=== PATIENT | female | born 2000 | race Caucasian/White ===

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

== ENCOUNTER 2018-10-08 19:39 | Emergency (ER) | payer BC ==
[2018-10-08 19:53] VITALS: BP 103/63
--- NOTE | 2018-10-08 19:55 | EDPHY ---
H & P Stated Complaint: RIGHT EYE PAIN, DISCHARGE,REDNESS, 2 DAYS Time Seen by Provider: 10/08/18 19:53 HPI/ROS: HPI: This is a 18-year-old female who presents with Chief Complaint: RIGHT EYE PAIN, DISCHARGE,REDNESS, 2 DAYS Location: Right eye Quality: Discharge, redness Duration: 2 days Signs and Symptoms: no fever, no nausea, no vomiting, no photophobia, no noise sensitivity, no neck stiffness, no ear pain, no tinnitus, no nasal congestion, no sinus pressure, no weakness, no radiation, no aura Timing: Worsening Severity: Mild Context: Patient is a student at [employer], contact lens wear, presents with 2 day history of right eye itchiness and discomfort accompanied by discharge and redness. Patient reports that she fell asleep with her contact lens overnight and then woke up the next day with watery right eye and redness. Patient reports that she washed laundry approximately 1-2 weeks ago. She has been wearing her glasses for the last 2 days. Denies any change in vision. Reports tetanus is current. Denies any trauma/foreign body sensation. Modifying Factors: None Comment: ROS: A comprehensive 10 system review of systems is otherwise negative aside from elements mentioned in the history of present illness. MEDICAL/SURGICAL/SOCIAL HISTORY: Medical history: Generally healthy. IUD in place. Surgical history: Denies Social history: Former smoker. Denies drug use. Family history noncontributory. General appearance: Well-developed, well-nourished, young adult white female, awake and alert, cooperative. Visual Acuity: noted from Nurse's notes. Pupils: equal round and reactive to light. EOMI. Lids: no edema or swelling Skin: no proptosis, no periorbital erythema or swelling, no vesicles Conjunctivae: not injected, no discharge Cornea: exam with fluorescein shows uptake at 6:00 a[address] Anterior chamber: normal, no hyphema or hypopyon Source: Patient Exam Limitations: No limitations - Personal History LMP (Females 10-55): IUD [address] Place Current Tetanus/Diphtheria Vaccine: Yes - Medical/Surgical History Hx Asthma: Yes Hx Chronic Respiratory Disease: No Hx Diabetes: No Hx Cardiac Disease: No Hx Renal Disease: No Hx Cirrhosis: No Hx Alcoholism: No Hx HIV/AIDS: No Hx Splenectomy or Spleen Trauma: No Other PMH: boarder line personality, migraines,asthma - Social History Smoking Status: Former smoker Constitutional: Initial Vital Signs Temperature (C) 36.9 C 10/08/18 19:49 Heart Rate 88 10/08/18 19:49 Respiratory Rate 18 10/08/18 19:49 Blood Pressure 103/63 10/08/18 19:49 O2 Sat (%) 98 10/08/18 19:49 O2 Delivery Mode Room Air Allergies/Adverse Reactions: No Known Allergies Allergy (Unverified 10/08/18 19:48) Home Medications: Medication Instructions Recorded Wellbutrin Xl 08/06/16 Zonisamide 08/06/16 Ibuprofen [Motrin (*)] 800 mg PO Q6-8PRN #10 tab 10/13/17 Naratriptan HCl 10/13/17 Abilify 10/08/18 PRISTIQ 10/08/18 Medical Decision Making ED Course/Re-evaluation: Tetanus is up-to-date. Fluorescein uptake consistent with corneal abrasion Contact lens wear; ofloxacin eye drops given This patient was seen under the supervision of my secondary supervising physician. I evaluated care for this patient independently. Discussed this patient with Dr. Baumann. Differential Diagnosis: Differential diagnosis includes but is not limited to uveitis, iritis, conjunctivitis, corneal abrasion, dry eyes. - Data Points Medications Given: Discontinued Medications Proparacaine HCl (Alcaine 0.5%) 1 drops OP EDNOW ONE Stop: 10/08/18 19:59 Last Admin: 10/08/18 20:04 Dose: Not Given Departure - Departure Disposition: Home, Routine, Self-Care Clinical Impression: Corneal abrasion of right eye due to contact lens Condition: Good Instructions: Corneal Abrasion (ED) Additional Instructions: Instill Ofloxacin 2 drops in affected eye(s) every 4 hours for the first 2 days , then instill 2 drops 4 times daily for an additional 5 days. Please avoid using your hands to touch your eyes. Wash your hands frequently with mild soap and water. Apply cool compresses for 15-20 minutes at a time several times per day for the next 1-2 days. Follow up with ophthalmology in 5-7 days if no improvement in symptoms. Take Tylenol 650 mg every 4 hr and/or ibuprofen 600 mg every 8 hr as needed for pain. Eye Complaint: Return to the Emergency Department for any increase in eye pain, redness, swelling, discharge or any worsening of your vision. Referrals: Richa Haq MD [Medical Doctor] - As per Instructions
[2018-10-08] MEDS ORDERED: PROPARACAINE 0.5% 15 ML OPHT DROP OP ONE (19:58)
[2018-10-08] MEDS ORDERED: FLUORESCEIN SODIUM 1 MG STRIP OP ONE (20:00)
[2018-10-08] MEDS ORDERED: OFLOXACIN 0.3% SOLN PREPACK OPHT.BTL TAKEHOME ONE (20:07)
== END 2018-10-08 20:19 | disposition home or self-care (01) ==
DX: S05.01XA Injury of conjunctiva and corneal abrasion without foreign body, right eye, initial encounter (principal); X58.XXXA Exposure to other specified factors, initial encounter; Y99.9 Unspecified external cause status; Z87.891 Personal history of nicotine dependence

== ENCOUNTER 2018-11-14 11:04 | Emergency (ER) | payer BC ==
--- NOTE | 2018-11-14 11:26 | EDPHY ---
H & P Stated Complaint: N/V and abdo pian since this AM. Time Seen by Provider: 11/14/18 11:24 HPI/ROS: HPI: This is a 18-year-old female who presents with Chief Complaint: N/V and abdominal pain since this AM. Location: GI Quality: Nausea, vomiting Duration: Started around 7:00 a.m. Approximately 4 hr prior to arrival Signs and Symptoms: no fever, + nausea, + vomiting, no hematemesis, no blood in stool, no abdominal bloating, no diarrhea, no back pain, no urinary symptoms, no vaginal bleeding/discharge, no indigestion, no chest pain, no shortness of breath Timing: Acute, intermittent episodes Severity: [id number] Context: Patient is a student at [employer], lives in apartment alone, presents with waking up this morning around 7:00 a.m. Feeling nauseous and vomiting her stomach contents approximately 5 times. She denies any fever, diarrhea, urinary symptoms, flank pain, back pain. She does complain of generalized abdominal cramping prior to vomiting. No recent antibiotic use. Patient believes that the nausea she had yesterday evening was not good and may have given her"food poisoning."Patient has an IUD and usually gets her menses every month around the . Modifying Factors: None Comment: ROS: A comprehensive 10 system review of systems is otherwise negative aside from elements mentioned in the history of present illness. MEDICAL/SURGICAL/SOCIAL HISTORY: Medical history: boarder line personality, migraines, asthma. IUD in place. LMP 2 weeks ago. Surgical history: Denies Social history: Nonsmoker. Denies drug use. Family history noncontributory. CONSTITUTIONAL: Polite and cooperative, well-appearing, young adult white female awake and alert, no obvious distress HEENT: Atraumatic and normocephalic, PERRL, EOMI. Nares patent; no rhinorrhea; no nasal mucosal edema. Tympanic membranes clear. Oropharynx clear, no exudate and moist pink mucosa. Airway patent. No lymphadenopathy. No meningismus. Cardiovascular: Normal S1/S2, tachycardia, regular rhythm, without murmur rub or gallop. PULMONARY/CHEST: Symmetrical and nontender. Clear to auscultation bilaterally. Good air movement. No accessory muscle usage. ABDOMEN: Soft, nondistended, nontender, no rebound, no guarding, no peritoneal signs, no masses or organomegaly. No CVAT. EXTREMITIES: 2/2 pulses, strength 5/5, no deformities, no clubbing, no cyanosis or edema. NEUROLOGICAL: no focal neuro deficits. GCS 15. SKIN: Warm and dry, no erythema. no rash. Good capillary refill. Source: Patient Exam Limitations: No limitations - Personal History LMP (Females 10-55): IUD In Place Current Tetanus Diphtheria and Acellular Pertussis (TDAP): Yes - Medical/Surgical History Hx Asthma: Yes Hx Chronic Respiratory Disease: No Hx Diabetes: No Hx Cardiac Disease: No Hx Renal Disease: No Hx Cirrhosis: No Hx Alcoholism: No Hx HIV/AIDS: No Hx Splenectomy or Spleen Trauma: No Other PMH: boarder line personality, migraines,asthma - Social History Smoking Status: Former smoker Constitutional: Initial Vital Signs Temperature (C) 36.9 C 11/14/18 11:10 Heart Rate 101 H 11/14/18 11:10 Respiratory Rate 16 11/14/18 11:10 Blood Pressure 121/75 H 11/14/18 11:10 O2 Sat (%) 97 11/14/18 11:10 O2 Delivery Mode Room Air Allergies/Adverse Reactions: No Known Allergies Allergy (Unverified 10/08/18 19:48) Home Medications: Medication Instructions Recorded Wellbutrin Xl 08/06/16 Zonisamide 08/06/16 Ibuprofen [Motrin (*)] 800 mg PO Q6-8PRN #10 tab 10/13/17 Naratriptan HCl 10/13/17 Abilify 10/08/18 PRISTIQ 10/08/18 Ondansetron Odt [Zofran Odt 4 mg 4 mg PO Q4 PRN #12 tab 11/14/18 (*)] Promethazine HCl 25 mg PO Q6 PRN #10 tablet 11/14/18 Medical Decision Making ED Course/Re-evaluation: Vital signs reviewed and show tachycardia but no fever. Abdomen is soft and nontender doubt surgical process or need for imaging. IV access and laboratory studies ordered Given 1 L normal saline, IV promethazine 12.5 mg and p.o. Tylenol 1000 mg 1230: Laboratory studies reviewed. No signs of BRADLY/elevated LFTs/electrolyte imbalance/pancreatitis/. 1256: Reassessed patient who reports near complete relief of symptoms. She is drinking water without difficulty. No episodes of vomiting in the 3 hr that she was in the emergency room. Patient requesting school excuse as she has a final tomorrow. This patient was seen under the supervision of my secondary supervising physician. I evaluated care for this patient independently. Discussed this patient with Dr. Gabriel who did not see the patient. Differential Diagnosis: Abdominal pain including but not limited to appendicitis, cholecystitis, gastritis and urinary tract infection. - Data Points Laboratory Results: Laboratory Results 11/14/18 11:35 11/14/18 11/14/18 11:35 11:35 Sodium 140 mEq/L mEq/L (135-145) Potassium 4.5 mEq/L mEq/L (3.5-5.2) Chloride 107 mEq/L mEq/L (97-110) Carbon Dioxide 20 mEq/l L mEq/l (22-31) Anion Gap 13 mEq/L mEq/L (6-14) BUN 17 mg/dL mg/dL (7-23) Creatinine 0.6 mg/dL mg/dL (0.6-1.0) Estimated GFR > 60 Glucose 86 mg/dL mg/dL (70-100) Calcium 9.1 mg/dL mg/dL (8.5-10.4) Total Bilirubin 0.5 mg/dL mg/dL (0.1-1.4) Conjugated Bilirubin 0.1 mg/dL mg/dL (0.0-0.5) Unconjugated Bilirubin 0.4 mg/dL mg/dL (0.0-1.1) AST 14 IU/L IU/L (14-46) ALT 19 IU/L IU/L (9-52) Alkaline Phosphatase 44 IU/L IU/L (38-126) Total Protein 7.1 g/dL g/dL (6.3-8.2) Albumin 4.4 g/dL g/dL (3.5-5.0) Lipase 61 IU/L IU/L (23-300) Beta HCG, Qual NEGATIVE Medications Given: Discontinued Medications Acetaminophen (Tylenol) 1,000 mg PO EDNOW ONE Stop: 11/14/18 12:17 Last Admin: 11/14/18 13:08 Dose: 1,000 mg Sodium Chloride (Ns) 1,000 mls @ 0 mls/hr IV EDNOW ONE; Wide Open PRN Reason: Protocol Stop: 11/14/18 11:30 Last Admin: 11/14/18 11:40 Dose: 1,000 mls Ondansetron HCl (Zofran Odt) 4 mg PO EDNOW ONE Stop: 11/14/18 13:07 Last Admin: 11/14/18 13:08 Dose: 4 mg Promethazine HCl (Phenergan) 12.5 mg IVP EDNOW ONE Stop: 11/14/18 11:30 Last Admin: 11/14/18 11:45 Dose: 12.5 mg Departure - Departure Disposition: Home, Routine, Self-Care Clinical Impression: Nausea and vomiting Qualifiers: Vomiting type: unspecified Vomiting Intractability: non-intractable Qualified Code(s): R11.2 - Nausea with vomiting, unspecified Condition: Good Instructions: Gastroenteritis (ED), Acute Nausea and Vomiting (ED) Additional Instructions: Consume a minimum of 8-10 glasses of water or electrolyte fluid replacement drinks that include Gatorade, Powerade, Pedialyte. Eat a bland diet for the next 48 hours and then slowly advance as tolerated. Take Zofran 1 tab every 4 hours as needed for nausea, vomiting. Take promethazine every 6 hr as needed for nausea and vomiting not relieved by Zofran. Return to the Emergency Room if symptoms do not resolve in the next 48-72 hours , you spike a fever > 102 F, or experience intractable abdominal pain/nausea/ vomiting. Referrals: [facility],. [Clinic] - As per Instructions Stand Alone Forms: School Excuse Prescriptions: Ondansetron Odt [Zofran Odt 4 mg (*)] 4 mg PO Q4 PRN #12 tab PRN Reason: Nausea/Vomiting, Use 1st Promethazine HCl 25 mg PO Q6 PRN #10 tablet PRN Reason: Nausea/Vomiting, Use 2nd
[2018-11-14] MEDS ORDERED: PROMETHAZINE HCL 25 MG/ML INJ IVP ONE (11:29)
[2018-11-14] MEDS ORDERED: NS 1,000 ML IV ONE (11:29)
[2018-11-14] MEDS ORDERED: ACETAMINOPHEN 500 MG TAB PO ONE (12:16)
[2018-11-14] MEDS ORDERED: ONDANSETRON DISINTEGRATING 4 MG TAB PO ONE (13:06)
[2018-11-14 14:33] VITALS: BP 115/78
== END 2018-11-14 14:33 | disposition home or self-care (01) ==
DX: R11.2 Nausea with vomiting, unspecified (principal); E86.9 Volume depletion, unspecified; G43.909 Migraine, unspecified, not intractable, without status migrainosus; J45.909 Unspecified asthma, uncomplicated; Z97.5 Presence of (intrauterine) contraceptive device; Z87.891 Personal history of nicotine dependence
CPT/HCPCS: 96374; J2550